=== PATIENT | female | born 1990 | race Caucasian/White ===

== ENCOUNTER 2018-03-10 02:55 | Inpatient (IN) | payer BC ==
[2018-03-10] MEDS ORDERED: OLIVE OIL 118 ML BTL ONE (04:52)
[2018-03-10] MEDS ORDERED: OXYTOCIN 10 UNIT/ML VIAL ONE (04:52)
[2018-03-10] MEDS ORDERED: AMMONIA AROMATIC 1 EACH AMP IH ONE (04:52)
[2018-03-10] MEDS ORDERED: TERBUTALINE SULFATE 1 MG/ML VIAL ONE (04:52)
[2018-03-10] MEDS ORDERED: LIDOCAINE 1% 300 MG/30 ML SDV ONE (04:52)
[2018-03-10] MEDS ORDERED: MISOPROSTOL 200 MCG TAB ONE (04:53)
[2018-03-10] MEDS ORDERED: MISOPROSTOL 200 MCG TAB PO PRN (05:09)
[2018-03-10] MEDS ORDERED: LR 1,000 ML IV PRN (05:09)
[2018-03-10] MEDS ORDERED: TERBUTALINE SULFATE 1 MG/ML VIAL IV PRN (05:09)
[2018-03-10] MEDS ORDERED: AMMONIA AROMATIC 1 EACH AMP IH PRN (05:09)
[2018-03-10] MEDS ORDERED: LIDOCAINE 1% 300 MG/30 ML SDV SC PRN (05:09)
[2018-03-10] MEDS ORDERED: EPSOM SALT 454 GM TP PRN (05:09)
[2018-03-10] MEDS ORDERED: OLIVE OIL 118 ML BTL MISC PRN (05:09)
[2018-03-10] MEDS ORDERED: IBUPROFEN 600 MG TAB PO PRN (05:09)
--- NOTE | 2018-03-10 05:18 | PDGENHP ---
History and Physical History and Physical: CARE: [facility] HPI: Patient is a 27 yo G 1 P 0 at 38.5 weeks ega who presents to L&D with complaints of regular painful contractions. She denies LOF, VB other than light bloody show. Baby has been active. Her cervix changed from 1 cm to 4-5/ 70/-2 during 2 hour labor check. She has had some elevated BPs during labor check, particularly on admission and when checked during contractions. Most BPs have been 120/80s range. Denies headaches, increased edema, visual changes or epigastric pain. EDC: 03/19/18 which is based on LMP: 06/12/18 which is known and consistent with Ultrasound at 9 weeks. Her is complicated by: -h/o scoliosis -pre- BMI 16: had 35+ pound weight gain with -h/o placenta previa that cleared at 35 weeks Review of Systems: Constitutional: Denies any fever, chills, or fatigue HEENT: denies any visual changes, difficulty swallowing, hearing loss Cardiovascular: Denies any chest pain, palpitations, leg swelling Respiratory: denies any cough, wheezing, or shortness of breathe GI: Denies any nausea, vomiting, diarrhea, constipation : denies any dysuria, urgency, frequency, vaginal bleeding Musculoskeletal: denies any muscle or bone pain Skin: denies any rashes Neuro: denies any headache, seizures, lightheadedness, dizziness, or loss of consciousness Psychiatric: denies any depression, anxiety, or SI/HI thoughts HISTORY: Previous OB history: none Past medical history: none Past surgical history: wisdom teeth Medications: PNV Allergies (list reaction): NKDA LABS: Rh: O pos ABS: Neg Rubella: Immune HbsAg: NR HIV: NR VDRL: NR 1hr: 125 GC: Neg Chlamydia: Neg Pap: Normal GBS: neg Genetic screening: innatal/AFP WNL BMI: (prepreg) 16 PHYSICAL EXAM: Constitutional: WN, A&Ox3 HEENT: normocephalic atraumatic, supple Heart: RRR, no murmur Chest: CTA-B Abdomen: Soft, nontender, gravid SVE: 4-5/70/-2 Extremities: sml edema, negative lori's sign Neuro: grossly normal Psych: normal affect assessment: Reassuring FHTs, baseline 140s +accels, no decels, moderate variability Contractions: toco q 3-4 Assessment: 1) 28 yo G 1 P 0 with IUP@ 38.5 weeks ega 2) Active labor 3) GBS neg 4) Cat 1 FHR tracing 5) Several elevated BPs during labor check - 140s-160s/90s. 6) Desires epidural for pain relief Plan: 1) Admit to L&D 2) Suspect elevated BPs related to pain/anxiety, but will check PIH labs 3) Anesthesia notified that patient desires epidural 4) Anticipate
[2018-03-10 05:50] LABS: PLATELET COUNT 113 10^3/uL (150-400)
--- NOTE | 2018-03-10 06:09 | PREANESOB ---
Obstetric Pre-Anesthesia Info - General Info Proposed Procedure: Continuous Labor Epidural (Lumbar) : 1 Para: 0 MICHELE: 03/19/18 Gestational Age: 38 week(s) and 5 day(s) - Info Status: Full Term Monitors: External FHR Pattern: Reassuring - Labor Status Cervical Dilation per last OB SVE: 5 Magnesium Sulfate in Use: No Indications for Labor Analgesia: Pain Control Labor Epidural: Proposed Anesthesia Allergies/Adverse Reactions: Allergy/AdvReac Type Severity Reaction Status Date / Time No Known Allergies Allergy Unverified 03/10/18 04:13 Home Medications: Medication Instructions Recorded Dha 03/10/18 Tums 500MG (*) 03/10/18 Visit Medications: Generic Name Dose Route Start Last Admin Trade Name Freq PRN Reason Stop Dose Admin Ammonia (Aromatic Spirit) 1 each 03/10/18 05:09 Ammonia Aromatic IH 03/20/18 05:08 ONCE PRN Fainting Lactated Ringer's 1,000 mls @ 0 mls/hr 03/10/18 05:09 03/10/18 05:16 Lr IV 03/11/18 05:08 1,000 mls PRN PRN Administration SEE PROTOCOL CONDITIONS Protocol Per Protocol Ibuprofen 600 mg 03/10/18 05:09 Motrin PO ONCE PRN post , pain Lidocaine HCl 300 mg 03/10/18 05:09 Lidocaine Hcl 1% SC 09/06/18 05:08 ONCE PRN episiotomy Magnesium Sulfate 454 gm 03/10/18 05:09 Epsom Salt TP 09/06/18 05:08 Q1H PRN perineal discomfort Misoprostol 800 - 1,000 mcg 03/10/18 05:09 Cytotec PO 09/06/18 05:08 ONCE PRN Vaginal Atony/Bleeding [place] Oil 118 ml 03/10/18 05:09 Sweet Oil MISC 09/06/18 05:08 ONCE PRN perineal massage Terbutaline Sulfate 0.25 mg 03/10/18 05:09 Brethine IV 09/06/18 05:08 ONCE PRN Tachysystole Discontinued Medications Generic Name Dose Route Start Last Admin Trade Name Freq PRN Reason Stop Dose Admin Ammonia (Aromatic Spirit) Confirm 03/10/18 04:52 Ammonia Aromatic Administered 03/10/18 04:53 Dose 1 each IH .STK-MED ONE Lidocaine HCl Confirm 03/10/18 04:52 Lidocaine Hcl 1% Administered 03/10/18 04:53 Dose 300 mg .ROUTE .STK-MED ONE Misoprostol Confirm 03/10/18 04:53 Cytotec Administered 03/10/18 04:54 Dose 1,000 mcg .ROUTE .STK-MED ONE [place] Oil Confirm 03/10/18 04:52 Sweet Oil Administered 03/10/18 04:53 Dose 118 ml .ROUTE .STK-MED ONE Oxytocin Confirm 03/10/18 04:52 Pitocin Administered 03/10/18 04:53 Dose 40 unit .ROUTE .STK-MED ONE Terbutaline Sulfate Confirm 03/10/18 04:52 Brethine Administered 03/10/18 04:53 Dose 1 mg .ROUTE .STK-MED ONE - Anesthesia History Response to Local Anesthetics: Normal Anesthesia & Operative History: No Prior Problems Family Anesthesia History: Negative - Social History Substance Use/Abuse: Denies - Vital Signs Height/Weight (Nursing): Height 167.64 cm Weight 63.049 kg - Focused Exam Neck exam: FROM Mallampati Score: Class 1 Mouth exam: normal dental/mouth exam Pulmonary: no respiratory distress Cardiovascular: regular rate and rhythym Labs: 03/10/18 05:10 03/10/18 05:10 Uric Acid 5.8 mg/dL (2.5-6.8) 03/10/18 05:10 AST 28 IU/L (14-46) 03/10/18 05:10 ALT 31 IU/L (9-52) 03/10/18 05:10 Lactate Dehydrogenase 536 IU/L (313-618) 03/10/18 05:10 - Plan Consent Signed and on Chart: Yes Patient/Guardian Understands and Agrees to Plan: Yes
[2018-03-10] MEDS ORDERED: BUPIVACAINE 0.25% 30 ML SDV ONE (06:14)
[2018-03-10] MEDS ORDERED: PHENYLEPHRINE HCL 100 MCG/ML SYR ONE (06:14)
[2018-03-10] MEDS ORDERED: fentaNYL 200 MCG, BUPIVACAINE 0.5% 20 ML in NS 100 ML EP SCH (06:30)
[2018-03-10] MEDS ORDERED: PHENYLEPHRINE HCL 100 MCG/ML SYR IVP PRN (07:15)
[2018-03-10] MEDS ORDERED: NALOXONE HCL 0.4 MG/ML INJ IVP PRN (07:15)
[2018-03-10] MEDS ORDERED: ONDANSETRON 4 MG/2 ML VIAL IVP PRN (07:15)
--- NOTE | 2018-03-10 07:28 | POSTANESTH ---
Post Anesthetic Evaluation Cardiovascular Status: Normal, Stable, Similar to Pre-Op Cond Respiratory Status: Normal, Stable, Similar to Pre-op Cond. Level of Consciousness/Mental Status: Can Participate in Eval, Alert and Oriented Pain Control: Adequate, Prn Tx Ordered Nausea/Vomiting Control: Adequate, Prn Tx Ordered Complications Possibly Related to Anesthesia: None Noted (Patient tolerated placement of labor epidural well. Pain well controlled shortly following bolus of epidural.)
[2018-03-10] MEDS ORDERED: fentaNYL 2MCG/ML/BUP 0.1% RTU 100 ML EP SCH (07:30)
[2018-03-10] MEDS ORDERED: LR 500 ML IV SCH (07:30)
[2018-03-10] MEDS ORDERED: LIDO/EPI 2% **for epidural** 20 ML SDV ONE (07:44)
[2018-03-10] MEDS ORDERED: HYDROCORTISONE 0.5% CREAM TP PRN (12:47)
[2018-03-10] MEDS ORDERED: HYDROCODONE/APAP 5/325 TAB PO PRN (12:47)
[2018-03-10] MEDS ORDERED: SIMETHICONE 80 MG TAB CHEW PO PRN (12:47)
[2018-03-10] MEDS ORDERED: OXYTOCIN/RINGERS LACTATE 1,000 ML IV PRN (12:49)
--- NOTE | 2018-03-10 12:55 | OBDEL ---
Info Type: Vaginal Presentation at Delivery: Vertex L&D Analgesia/Anesthesia Type: Epidural GBS+: No Intrapartum Medications: Generic Name Dose Route Start Last Admin Trade Name Freq PRN Reason Stop Dose Admin Lactated Ringer's 1,000 mls @ 0 mls/hr 03/10/18 05:09 03/10/18 05:16 Lr IV 03/11/18 05:08 1,000 mls PRN PRN Administration SEE PROTOCOL CONDITIONS Protocol Per Protocol Fentanyl 200 mcg/ Bupivacaine 100 mls @ 0 mls/hr 03/10/18 06:30 03/10/18 07: 00 HCl 20 ml/ Sodium Chloride EP 03/20/18 06:29 100 mls CONT ALEE Administration Protocol As Directed Lactated Ringer's 500 mls @ 0 mls/hr 03/10/18 07:30 03/10/18 06:00 Lr IV 09/06/18 07:29 500 mls CONT ALEE Administration As Directed Lidocaine HCl 300 mg 03/10/18 05:09 03/10/18 12:15 Lidocaine Hcl 1% SC 09/06/18 05:08 300 mg ONCE PRN Administration episiotomy Discontinued Medications Generic Name Dose Route Start Last Admin Trade Name Rashmi PRN Reason Stop Dose Admin Ibuprofen 600 mg 03/10/18 05:09 03/10/18 12:34 Motrin PO 600 mg ONCE PRN Administration post , pain - Hospital Course Intrapartum: 03/10/18 12:49 IUP @ 38 5/7 wks in labor; GBS negative; FOC not involved Indications for Delivery: Spontaneous Labor Vaginal Delivery - Delivery Provider Delivery Physician/CNM: Mariah Koch - Labor and Delivery Onset of Contractions Date: 03/10/18 Onset of Contractions Time: 00:00 Onset of Contractions Type: Spontaneous Rupture of Membranes Date: 03/10/18 Rupture of Membranes Time: 07:07 Rupture of Membranes Type: Artificial Amniotic Fluid Color: Clear Dilation Complete Date: 03/10/18 Dilation Complete Time: 10:42 Placenta Delivery Date: 03/10/18 Placenta Delivery Time: 12:13 Total Hours of Labor: 12 Non-surgical Procedures: Amniotomy Laceration: 2nd Degree Repair: 3-0, Vicryl Vaginal Sponge Count Correct: Yes Vaginal Needle Count Correct: Yes Vaginal Sweep Performed: Yes EBL: 350 cc Delivery Events: None Delivery Comment: A viable female born in cephalic presentation, CARMEN over intact perineum with 8 and 9 Apgars at 1210. No nuchal cord. To maternal abdomen; cord clamping delayed x 60 sec. Cord blood obtained. Placenta delivered spontaneously intact with 3-vc. Inspection revealed 2nd degree lac repaired under epidural and local- 1% Lidocaine. Pt ari well. No complications. Data MICHELE: 03/19/18 Gestational Age: 38 week(s) and 5 day(s) [place] Delivery Date: 03/10/18 Delivery Time: 12:10 Sex of : Female Score (1 Min): 8 Score (5 Min): 9 ICD10 Worksheet Patient Problems: Problems Problem Status Onset (spontaneous vaginal delivery) Acute - ICD10 Problem Qualifiers (1) (spontaneous vaginal delivery)
[2018-03-10] MEDS ORDERED: OXYTOCIN/RINGERS LACTATE 1,000 ML IV SCH (13:00)
[2018-03-10] MEDS: DOCUSATE SODIUM 100 MG CAP PO PRN (19:27)
[2018-03-10] MEDS: IBUPROFEN 600 MG TAB PO SCH (19:27)
[2018-03-11] MEDS: IBUPROFEN 600 MG TAB PO SCH ×5 (01:35→22:07)
[2018-03-11] MEDS: DOCUSATE SODIUM 100 MG CAP PO PRN (08:37)
--- NOTE | 2018-03-11 08:41 | POSTANESTH ---
Post Anesthetic Evaluation Cardiovascular Status: Normal, Stable, Similar to Pre-Op Cond Respiratory Status: Normal, Stable, Similar to Pre-op Cond. Level of Consciousness/Mental Status: Can Participate in Eval, Alert and Oriented Pain Control: Adequate, Prn Tx Ordered Nausea/Vomiting Control: Adequate, Prn Tx Ordered Complications Possibly Related to Anesthesia: None Noted (Patient evaluated this morning s/p delivery. Epidural catheter is removed. Patient ambulating, no signs of PDPH, no residual numbness or tingling. Patient stated she has been able to urinate on her own. Patient extremely happy with her labor epidural care.)
--- NOTE | 2018-03-11 09:43 | OBPP ---
Progress Note Assessment/Plan: Assessment: [id number] s/p PPD#1 flat nipples Plan: routine PP care support PRN d/c home 24-48hr 03/11/18 09:40 Subjective/ Course: 03/11/18 09:41 Pt doing well, she denies any severe pain or heavy bleeding. She does report some cramping and discomfort in perineum. She is pumping and - has flat nipples. She is ambulating and voiding without difficulty. Objective: 03/10/18 05:10 03/10/18 05:10 Patient ABO/Rh O POSITIVE 03/10/18 05:10 Uric Acid 5.8 mg/dL (2.5-6.8) 03/10/18 05:10 AST 28 IU/L (14-46) 03/10/18 05:10 ALT 31 IU/L (9-52) 03/10/18 05:10 Lactate Dehydrogenase 536 IU/L (313-618) 03/10/18 05:10 Temp Pulse Resp BP Pulse Ox 37.2 C 84 16 126/72 H 95 03/11/18 08:01 03/11/18 08:01 03/11/18 08:01 03/11/18 08:01 03/11/18 08:01 Uterine Position/Fundal Height: Umbilicus -2, Midline Uterine Tone: Firm Physical Exam - Physical Exam General Appearance: WD/WN, alert, no apparent distress Neck: supple Respiratory: lungs clear, normal breath sounds Cardiac/Chest: regular rate, rhythm Abdomen: non-tender, soft Extremities: non-tender Skin: normal color, warm/dry Neuro/Psych: alert, normal mood/affect, oriented x 3
[2018-03-12] MEDS: IBUPROFEN 600 MG TAB PO SCH ×2 (04:07→10:24)
[2018-03-12] MEDS: DOCUSATE SODIUM 100 MG CAP PO PRN (08:52)
[2018-03-12 10:27] VITALS: BP 127/81
--- NOTE | 2018-03-12 12:29 | OBPP ---
Progress Note Assessment/Plan: Assessment: 28 yo G1 now P1 PPD #2 s/p - doing well. Plan: DC home. Std pp instructions reviewed, including pelvic rest x 6 weeks and ssx pp depression. 03/12/18 12:29 Subjective/ Course: 03/11/18 09:41 Pt doing well, she denies any severe pain or heavy bleeding. She does report some cramping and discomfort in perineum. She is pumping and - has flat nipples. She is ambulating and voiding without difficulty. 03/12/18 12:26 Pt doing well. Had a high BP this morning, but it has normalized. No ssx PIH. Working on , nipple matt are helping. Ambulating and voiding without difficulty. Had a BM without issues. Desires homegoing. Objective: 03/10/18 05:10 03/10/18 05:10 Patient ABO/Rh O POSITIVE 03/10/18 05:10 Uric Acid 5.8 mg/dL (2.5-6.8) 03/10/18 05:10 AST 28 IU/L (14-46) 03/10/18 05:10 ALT 31 IU/L (9-52) 03/10/18 05:10 Lactate Dehydrogenase 536 IU/L (313-618) 03/10/18 05:10 Temp Pulse Resp BP Pulse Ox 36.8 C 84 16 127/81 H 95 03/12/18 08:40 03/12/18 08:40 03/12/18 08:40 03/12/18 10:20 03/11/18 20:36 BP this morning 151/87, repeat 127/81 gen - pleasant, NAD CV - RRR chest - CTAB abd - soft, + BS, fundus firm & NT u-3 ext - calves NT, no edema Uterine Position/Fundal Height: Umbilicus -3 Uterine Tone: Firm
--- NOTE | 2018-03-12 12:32 | OBGCSDC ---
General Delivery Information - General Info : 1 Para: 1 Abortions: 0 Type: Vaginal L&D Analgesia/Anesthesia Type: Epidural, Local Admission Date: 03/10/18 Labs: Patient ABO/Rh O POSITIVE 03/10/18 05:10 Hct 37.1 % (38.0-47.0) L 03/10/18 05:10 - Hospital Course Intrapartum: 03/10/18 12:49 IUP @ 38 5/7 wks in labor; GBS negative; FOC not involved : 03/11/18 09:41 Pt doing well, she denies any severe pain or heavy bleeding. She does report some cramping and discomfort in perineum. She is pumping and - has flat nipples. She is ambulating and voiding without difficulty. 03/12/18 12:26 Pt doing well. Had a high BP this morning, but it has normalized. No ssx PIH. Working on , nipple matt are helping. Ambulating and voiding without difficulty. Had a BM without issues. Desires homegoing. Vaginal - Delivery Provider Delivery Physician/CNM: Mariah Koch - Diagnosis Labor: Spontaneous Rupture of Membranes Type: Artificial Amniotic Fluid Color: Clear Laceration: 2nd Degree Repair: 3-0, Vicryl Delivery Events: None - Procedures Non-surgical Procedures: Amniotomy - Delivery Non-surgical Procedures: Amniotomy EBL: 350 cc [place] Data MICHELE: 03/19/18 Gestational Age: 39 week(s) and 0 day(s) [place] Delivery Date: 03/10/18 Delivery Time: 12:10 Sex of : Female [place] Weight (gm): 2668 g Score (1 Min): 8 Score (5 Min): 9 Discharge Information - Discharge Information Condition: Good Instruction/Follow Up: See Instruction Sheet, Four Weeks, Six Weeks
== END 2018-03-12 14:00 | disposition home or self-care (01) | DRG 775 ==
LOC: OBSVTOIN 02:55 → FLD 02:55 → FOB 16:04
PROVIDERS: ADMIT Advanced Practice Midwife; ATTEND Obstetrics & Gynecology
PROC: 10E0XZZ Delivery of Products of Conception, External Approach (ICD-10-PCS; principal; 2018-03-10)
PROC: 10907ZC Drainage of Amniotic Fluid, Therapeutic from Products of Conception, Via Natural or Artificial Opening (ICD-10-PCS; principal; 2018-03-10)
PROC: 0KQM0ZZ Repair Perineum Muscle, Open Approach (ICD-10-PCS; principal; 2018-03-10)
DX: O70.1 Second degree perineal laceration during delivery (principal); Z3A.39 39 weeks gestation of pregnancy; Z37.0 Single live birth
CPT/HCPCS: J2370; J2590; J3010; J3105